=== PATIENT | male | born 1955 | race Caucasian/White ===

== ENCOUNTER → 2019-05-06 | Outpatient (CLI) | payer MEDICARE ==
[~2019-05-06] MED LIST: FISH OIL 1,2001 EAC1 PO; IOPAMIDOL 370 MG/ML 200 ML INFUS..BTL INJ ONE; METOPROLOL SUCC25 MG PO; MULTIVITAMINS1 EAC7 PO; SODIUM CHLORIDE 0.9% 50ML 50 ML ONE; STOOL SOFTENER50 MG PO; VITAMIN C500 M1 PO; VITAMIN E200 UNI1 PO; ZOLPIDEM TARTRA10 MG PO
--- NOTE | 2019-05-06 17:03 | Diagnostic Imaging Report ---
EXAM: CT Abdomen and Pelvis WITH intravenous contrast INDICATION: Abdominal pain, vomiting COMPARISON: None. TECHNIQUE: Abdomen and pelvis were scanned utilizing a multidetector helical scanner from the lung base to the pubic symphysis after administration of IV contrast. Coronal and sagittal reformations were obtained. Routine protocol was performed. Scan was performed when during portal venous phase. IV CONTRAST: 100mL of Isovue 370 ORAL CONTRAST: Water COMPLICATIONS: None RADIATION DOSE: Total DLP: 419.6 mGy*cm Dose modulation, iterative reconstruction, and/or weight based adjustment of the mA/kV was utilized to reduce the radiation dose to as low as reasonably achievable. FINDINGS: LOWER THORAX: Normal. HEPATOBILIARY: No focal hepatic lesions. No biliary ductal dilatation. The gallbladder appears unremarkable. SPLEEN: No splenomegaly. Punctate calcified granuloma in the spleen. PANCREAS: There is a cystic mass of the pancreatic head measuring approximately 3.4 x 2.3 cm (series 2 image 27 there is no significant associated ductal dilatation. The mass appears to contain internal septations and multiple loculations. Additional hypodense lesions in the pancreatic body measure up to 1.3 cm (series 2 image 24). ADRENALS: No adrenal nodules. KIDNEYS/URETERS: No hydronephrosis, stones, or solid mass lesions. PELVIC ORGANS/BLADDER: Coarse calcifications in the nonenlarged prostate. Bladder appears unremarkable. PERITONEUM / RETROPERITONEUM: No free air or fluid. LYMPH NODES: No lymphadenopathy. VESSELS: Atherosclerotic calcifications of the abdominal aorta and major branches. GI TRACT: No abnormal bowel wall thickening or bowel distention. BONES AND SOFT TISSUES: No acute osseous injury. Mild degenerative changes of the visualized spine. No suspicious lytic or blastic lesions. IMPRESSION: Cystic, likely multiloculated mass of the pancreatic head measuring 3.4 x 2.3 cm and smaller pancreatic body cystic lesion. The differential includes intraductal papillary mucinous neoplasm as well as serous cystadenoma. Further evaluation with dynamic contrast enhanced MR imaging is recommended for further characterization. Signed by: Reese Ho MD on 05/06/2019 5:00 PM
== END ==
LOC: CT 14:30
PROVIDERS: ATTEND Internal Medicine Gastroenterology
DX: R10.10 Upper abdominal pain, unspecified (principal)
CPT/HCPCS: 74177; Q9967

== ENCOUNTER → 2019-05-08 | Day surgery (SDC) | payer MEDICARE ==
[2019-05-01 18:01] LABS: BASOPHILS # (AUTO) 0.1 (0.0-0.1); BASOPHILS % 0.6 % (0.0-1.0); EOSINOPHILS # (AUTO) 0.2 (0.0-0.4); EOSINOPHILS % 2.6 % (0.0-6.0); HEMATOCRIT 43.2 % (38.2-49.6); HEMOGLOBIN 14.5 g/dL (14.0-18.0); LYMPHOCYTES # (AUTO) 3.2 (1.0-3.2); LYMPHOCYTES % 34.7 % (18.0-39.1); MEAN CORPUSCULAR HEMOGLOBIN 32.6 pg (28-32); MEAN CORPUSCULAR HGB CONC 33.6 g/dL (31-35); MEAN CORPUSCULAR VOLUME 97.1 fL (81-99); MONOCYTES # (AUTO) 0.8 (0.2-0.8); MONOCYTES % 8.4 % (4.4-11.3); NEUTROPHILS # (AUTO) 4.9 (2.1-6.9); NEUTROPHILS % 53.4 % (38.7-80.0); PLATELET COUNT 175 x10e3/uL (140-360); RED BLOOD COUNT 4.45 x10e6/uL (4.3-5.7); RED CELL DISTRIBUTION WIDTH 14.8 % (11.7-14.4)
[2019-05-01 18:18] LABS: INR 0.91; PARTIAL THROMBOPLASTIN TIME 25.8 seconds (23.8-35.5); PROTHROMBIN TIME 12.7 seconds (11.9-14.5)
[2019-05-01 18:25] LABS: ALANINE AMINOTRANSFERASE 36 IU/L (0-55); ALBUMIN 3.6 g/dL (3.5-5.0); ALBUMIN/GLOBULIN RATIO 1.3 (0.8-2.0); ALKALINE PHOSPHATASE 72 IU/L (40-150); ANION GAP 13.5 mmol/L (8-16); BLOOD UREA NITROGEN 11 mg/dL (7-26); BUN/CREATININE RATIO 18 (6-25); CALCIUM 9.6 mg/dL (8.4-10.2); CARBON DIOXIDE 25 mmol/L (22-29); CHLORIDE 105 mmol/L (98-107); CREATININE, SERUM 0.62 mg/dL (0.72-1.25); EST GLOMERULAR FILTRATION RATE > 60 ML/MIN (60-); GLUCOSE 89 mg/dL (74-118); POTASSIUM 4.5 mmol/L (3.5-5.1); SODIUM 139 mmol/L (136-145)
[~2019-05-08] MED LIST changes: +FENTANYL CITRATE/PF 100MCG/2 ML INJ ONE; +HYOSCYAMINE 0.125 MG TAB ONE; -IOPAMIDOL 370 MG/ML 200 ML INFUS..BTL INJ ONE; +MIDAZOLAM HCL 2 MG/2 ML VIAL ONE; +PROPOFOL IV EMULSION 10 MG/ML 50 ML VIAL ONE; -SODIUM CHLORIDE 0.9% 50ML 50 ML ONE
--- OUTSIDE RECORDS SUMMARY | 2019-05-08 07:26 | XMS REPORT | Summary of Care ---
Author Author [facility] Organization [facility] Address Unknown Phone Unavailable Encounter HQ Encntr_alias(FIN) [id number] Date(s): 10/06/17 - 10/06/17 [facility] [id number] [place] [address]- Discharge Disposition: Home or Self Care Attending Physician: Lor Davis MD Referring Physician: Lor Davis MD Vital Signs No data available for this section Problem List No data available for this section Allergies, Adverse Reactions, Alerts No data available for this section Medications No data available for this section Results No data available for this section Immunizations No data available for this section Procedures No data available for this section Social History No data available for this section Assessment and Plan No data available for this section
--- OUTSIDE RECORDS SUMMARY | 2019-05-08 07:26 | XMS REPORT | Continuity of Care Document ---
Author Author [facility] Organization [facility] Address Unknown Phone Unavailable Care Team Providers Care [employer] Name Role Phone [facility] Unavailable Unavailable Problems Problem Status Onset Date Classification Date Reported Comments Source DX: G89.4=CHRONIC PAIN SYNDROME NO ST Active 09/24/2017 [facility] M54.5 - LOW BACK PAIN Active 08/21/2017 [facility] [place] Medications No Data Provided for This Section Allergies, Adverse Reactions, Alerts No Known Medication Allergies Immunizations No Data Provided for This Section Results No Data Provided for This Section Pathology Reports No Data Provided for This Section Diagnostic Reports Report Value Date Source Spine lumbar wo contrast MRI Clinical Indication: Lumbar Raiculopathy - Low back pain since 2015. No H/O of accident or trauma. Comparison: None. TECHNIQUE: Multiplanar T1, T2, STIR weighted noncontrast MRI of the lumbar spine is performed without IV contrast. FINDINGS: There is lumbar lordosis. The vertebral body heights and alignment are maintained. The bone marrow signal is within normal limits. The conus terminates at L1-L2. The distal cord is normal in size and signal characteristics. At L1-L2 there is no disc herniation, spinal canal stenosis or foraminal narrowing. There is bilateral facet joint arthropathy. At L2-L3 there is a mild disc bulge with bilateral facet joint arthropathy causing mild spinal canal stenosis and mild bilateral neural foraminal narrowing. At L3-L4, there is a diffuse disc bulge with bilateral facet joint arthropathy and mild ligamentum flavum hypertrophy causing mild spinal canal stenosis and mild bilateral neural foraminal narrowing, right greater than the left. At L4-L5 there is a diffuse disc bulge with bilateral facet joint arthropathy and ligamentum flavum hypertrophy causing moderate spinal canal stenosis and mild bilateral neural foraminal narrowing. At L5-S1 there is a diffuse disc bulge with right central and paracentral disc extrusion extending inferiorly for approximately may be 1.0 cm. It is causing narrowing of the right lateral recess and moderate spinal canal stenosis. There is no significant neural foraminal narrowing. IMPRESSION: No fracture or subluxation. Degenerative changes. At L5-S1 there is diffuse disc bulge with a right central and paracentral disc extrusion extending inferiorly for approximately 1.0 cm. It is causing narrowing of the right lateral recess and moderate spinal canal stenosis. At L4-L5 there is moderate spinal canal stenosis and mild bilateral neural foraminal narrowing. At L2-L3 and L3-L4 there is mild spinal canal stenosis and mild bilateral neural foraminal narrowing. SL: [id number] 10/06/2017 [facility] Spine lumbar 2 or 3 views DX REASON FOR EXAM: M54.5. Low back pain. COMPARISON: None. FINDINGS: Weightbearing AP and lateral views of the lumbar spine. 3 images are submitted. There are 5 lumbar vertebral bodies. The lumbar vertebral bodies are normally aligned. There is spondylosis of the lumbar spine with multilevel small anterior and lateral marginal osteophytes. Multilevel mild to moderate facet arthropathy is suspected more pronounced inferiorly. Mild posterior disc space narrowing at L1- L2 and L2-L3. Mild to moderate posterior disc space narrowing at L3-L4 and L4- L5. Moderate diffuse disc space narrowing at L5-S1. No compression deformity. There is no demonstrable abnormality of the sacroiliac joints. Mild aortoiliac calcifications. Calcified pelvic phleboliths. IMPRESSION: Degenerative changes of the lumbar spine as described above. SL: 16 08/28/2017 [facility] [place] Consultation Notes No Data Provided for This Section Discharge Summaries No Data Provided for This Section History and Physicals No Data Provided for This Section Vital Signs No Data Provided for This Section Encounters Location Location Details Encounter Type Encounter Number Reason For Visit Attending Provider ADM Date DC Date Status Source [facility] [place] [facility] [id number] Rajesh Carl 08/28[facility]2017 [facility] [id number] Lor Davis 10/06/2017 10/07/2017 [facility] Procedures No Data Provided for This Section Assessment and Plan No Data Provided for This Section Plan of Care No Data Provided for This Section Social History Social History Date Source No data available for this section 10/07/2017 [facility] No data available for this section 08/29/2017 [facility] Family History No Data Provided for This Section Advance Directives No Data Provided for This Section Functional Status No Data Provided for This Section
--- OUTSIDE RECORDS SUMMARY | 2019-05-08 07:26 | XMS REPORT ---
Author Author [facility] Address Unknown Phone Unavailable Care Team Providers Care Mainframe Analyst Name Role Phone LISA WORLEY Unavailable Unavailable Payers Payer Name Policy Type Policy Number Effective Date Expiration Date Problems This patient has no known problems. Allergies, Adverse Reactions, Alerts Allergy Name Allergy Type Status Severity Reaction(s) Onset Date Inactive Date Treating Clinician Comments No Known Allergies DA Active U 2018-11-05 00:00:00 No Known Contrast Allergies DA Active U 2005-08-26 00:00:00 No Known Drug Allergies DA Active U 2005-08-26 00:00:00 No Known Food Allergies DA Active U 2005-08-26 00:00:00 No Known Other Allergies DA Active U 2005-08-26 00:00:00 Medications This patient has no known medications. Results Test Description Test Time Test Comments Text Results Atomic Results Result Comments CT ABDOMEN/PELVIS W 2019-05-06 16:46:00 [facility] [address] [place] [address] Patient Name: ADAM SCHAFFER MR #: [id number] : 1955 Age/Sex: 63/M Req #: [id number] Adm Physician: Ordered by: LISA WORLEY MD Report #: [id number] Location: CT Room/Bed: Procedure: [id number] CT/CT ABDOMEN/PELVIS W Exam Date: 05/06/19 Exam Time: 1527 REPORT STATUS: Signed EXAM: CT Abdomen and Pelvis WITH intravenous contrast INDICATION: Abdominal pain, vomiting COMPARISON: None. TECHNIQUE: Abdomen and pelvis were scanned utilizing a multidetector helical scanner from the lung base to the pubic symphysis after administration of IV contrast. Coronal and sagittal reformations were obtained. Routine protocol was performed. Scan was performed when during portal venous phase. IV CONTRAST: 100mL of Isovue 370 ORAL CONTRAST: Water COMPLICATIONS: None RADIATION DOSE: Total DLP: 419.6 mGy*cm Dose modulation, iterative reconstruction, and/or weight based adjustment of the mA/kV was utilized to reduce the radiation dose to as low as reasonably achievable. FINDINGS: LOWER THORAX: Normal. HEPATOBILIARY: No focal hepatic lesions. No biliary ductal dilatation. The gallbladder appears unremarkable. SPLEEN: No splenomegaly. Punctate calcified granuloma in the spleen. PANCREAS: There is a cystic mass of the pancreatic head measuring a pproximately 3.4 x 2.3 cm (series 2 image 27 there is no significant associated ductal dilatation. The mass appears to contain internal septations and multiple loculations. Additional hypodense lesions in the pancreatic body measure up to 1.3 cm (series 2 image 24). ADRENALS: No adrenal nodules. KIDNEYS/URETERS: No hydronephrosis, stones, or solid mass lesions. PELVIC ORGANS/BLADDER: Coarse calcifications in the nonenlarged prostate. Bladder appears unremarkable. PERITONEUM / RETROPERITONEUM: No free air or fluid. LYMPH NODES: No lymphadenopathy. VESSELS: Atherosclerotic calcifications of the abdominal aorta and major branches. GI TRACT: No abnormal bowel wall thickening or bowel distention. BONES AND SOFT TISSUES: No acute osseous injury. Mild degenerative changes of the visualized spine. No suspicious lytic or blastic lesions. IMPRESSION: Cystic, likely multiloculated mass of the pancreatic head measuring 3.4 x 2.3 cm and smaller pancreatic body cystic lesion. The differential includes intraductal papillary mucinous neoplasm as well as serous cystadenoma. Further evaluation with dynamic contrast enhanced MR imaging is recommended for further characterization. Signed by: Humera Velez MD on 05/06/2019 5:00 PM Dictated By: HUMERA VELEZ MD 99 Transcribed By: MAXX on 05/06/191699 COPY TO: LISA WORLEY MD CBC W/AUTO DIFF 2018-11-06 07:51:00 WHITE BLOOD CELL (test code=WBC) 10.00 x10 3/uL 4.5-11.0 RED BLOOD CELL (test code=RBC) 4.35 x10 6/uL 4.00-5.60 HEMOGLOBIN (test code=HGB) 13.9 g/dL 12.5-16.9 HEMATOCRIT (test code=HCT) 44.0 % 37.5-50.7 MEAN CELL VOLUME (test code=MCV) 101.1 fL 81.0-99.0 MEAN CELL HGB (test code=MCH) 32.0 pg 27.0-33.0 MEAN CELL HGB CONCETRATION (test code=MCHC) 31.6 g/dL 33.0-37.0 RED CELL DISTRIBUTION WIDTH CV (test code=RDW) 13.9 % 11.5-14.5 RED CELL DISTRIBUTION WIDTH SD (test code=RDW-SD) 52.3 fL 37.0-54.0 PLATELET COUNT (test code=PLT) 173 x10 3/uL 150-400 MEAN PLATELET VOLUME (test code=MPV) 9.6 fL 7.0-9.0 NEUTROPHIL % (test code=NT%) 49.6 % 56.0-77.0 IMMATURE GRANULOCYTE % (test code=IG%) 0.2 % 0.0-2.0 LYMPHOCYTE % (test code=LY%) 39.8 % 14.0-32.0 MONOCYTE % (test code=MO%) 7.9 % 4.8-9.0 EOSINOPHIL % (test code=EO%) 1.9 % 0.3-3.7 BASOPHIL % (test code=BA%) 0.6 % 0.0-2.0 NUCLEATED RBC % (test code=NRBC%) 0.0 % 0-0 NEUTROPHIL # (test code=NT#) 4.96 x10 3/uL 2.0-7.6 IMMATURE GRANULOCYTE # (test code=IG#) 0.02 x10 3/uL 0.00-0.03 LYMPHOCYTE # (test code=LY#) 3.98 x10 3/uL 1.0-3.8 MONOCYTE # (test code=MO#) 0.79 x10 3/uL 0.1-0.8 EOSINOPHIL # (test code=EO#) 0.19 x10 3/uL 0.0-0.2 BASOPHIL # (test code=BA#) 0.06 x10 3/uL 0.0-0.2 NUCLEATED RBC # (test code=NRBC#) 0.00 x10 3/uL 0.0-0.1 MANUAL DIFF REQUIRED (test code=MDIFF) NO URINALYSIS [id number] 12:32:00* Test Item Value Reference Range Comments UA COLOR (test code=COLU) STRAW YEL/STRAW UA APPEARANCE (test code=APPU) CLEAR CLEAR UA GLUCOSE DIPSTICK (test code=DGLUU) NEGATIVE NEGATIVE UA BILIRUBIN DIPSTICK (test code=BILU) NEGATIVE NEGATIVE UA KETONE DIPSTICK (test code=KETU) NEGATIVE NEGATIVE UA SPECIFIC GRAVITY (test code=SGU) 1.005 1.005-1.030 UA BLOOD DIPSTICK (test code=JORDON) NEGATIVE NEGATIVE UA PH DIPSTICK (test code=SOCORRO) 7.0 5.0-7.0 UA PROTEIN DIPSTICK (test code=PROU) NEGATIVE NEGATIVE UA UROBILINIOGEN DIPSTICK (test code=URO) 0.2 mg/dL 0.2-1.0 UA NITRITE DIPSTICK (test code=MISHA) NEGATIVE NEGATIVE UA LEUKOCYTE ESTERASE DIPSTICK (test code=LEUU) NEGATIVE NEGATIVE UA WBC (test code=WBCU) 0-3 WBC/HPF 0-3 UA RBC (test code=RBCU) 0-3 RBC/HPF 0-3 UA BACTERIA (test code=BACU) NONE SEEN /HPF NONE SEEN UA SQUAMOUS CELLS (test code=SQU) NONE SEEN /HPF NONE SEEN UA MUCUS (test code=MUCU) TRACE /LPF NONE SEEN DRUGS OF ABUSE SCREEN [id number] 09:31:00* Test Item Value Reference Range Comments URN COCAINE (test code=COCAURN) NEGATIVE NEGATIVE URN CANNABINOIDS (test code=CANNABURN) POSITIVE NEGATIVE URN AMPHETAMINE (test code=AMPHETURN) NEGATIVE NEGATIVE URN BARBITURATE (test code=BARBITURN) NEGATIVE NEGATIVE URN BENZODIAZEPINE (test code=BENZOURN) NEGATIVE NEGATIVE Cut-off value:200 ng/mL URN OPIATES (test code=OPIATURN) NEGATIVE NEGATIVE Cut-off value:2000 ng/mL URN PHENCYCLIDINE (PCP) (test code=PHENCURN) NEGATIVE NEGATIVE Cutoffs:Barbiturates 200 ng/mLBenzodiazepines 200 ng/mLTHC Cannabinoids 50 ng/mLOpiates(Morphine) 2000 ng/mLAmphetamine 1000 ng/mLCocaine 300 ng/mLPCP phencyclidine 25 ng/mL Unconfirmed screening results shouldnot be used for non-medical purposes. DRUGS OF ABUSE SCREEN [id number] 09:22:00* Test Item Value Reference Range Comments URN COCAINE (test code=COCAURN) NEGATIVE NEGATIVE URN CANNABINOIDS (test code=CANNABURN) NEGATIVE URN AMPHETAMINE (test code=AMPHETURN) NEGATIVE NEGATIVE URN BARBITURATE (test code=BARBITURN) NEGATIVE NEGATIVE URN BENZODIAZEPINE (test code=BENZOURN) NEGATIVE NEGATIVE Cut-off value:200 ng/mL URN OPIATES (test code=OPIATURN) NEGATIVE NEGATIVE Cut-off value:2000 ng/mL URN PHENCYCLIDINE (PCP) (test code=PHENCURN) NEGATIVE NEGATIVE Cutoffs:Barbiturates 200 ng/mLBenzodiazepines 200 ng/mLTHC Cannabinoids 50 ng/mLOpiates(Morphine) 2000 ng/mLAmphetamine 1000 ng/mLCocaine 300 ng/mLPCP phencyclidine 25 ng/mL Unconfirmed screening results shouldnot be used for non-medical purposes. [id number] 08:15:00* Test Item Value Reference Range Comments ALCOHOL (test code=ALC) < 0.003 G/dL <0.003 Ethyl Alcohol Interpretation: 0.100 gm/dL - Legally Intoxicated 0.300-0.400 gm/dL - Severely Intoxicated >0.400 gm/dL - Potentially LethalResults are for Medical purposes only, and not for Legal orEmployment evaluation purposes. CBC W/AUTO [id number] 08:15:00* Test Item Value Reference Range Comments WHITE BLOOD CELL (test code=WBC) 12.57 x10 3/uL 4.5-11.0 RED BLOOD CELL (test code=RBC) 4.40 x10 6/uL 4.00-5.60 HEMOGLOBIN (test code=HGB) 14.3 g/dL 12.5-16.9 HEMATOCRIT (test code=HCT) 45.6 % 37.5-50.7 MEAN CELL VOLUME (test code=MCV) 103.6 fL 81.0-99.0 MEAN CELL HGB (test code=MCH) 32.5 pg 27.0-33.0 MEAN CELL HGB CONCETRATION (test code=MCHC) 31.4 g/dL 33.0-37.0 RED CELL DISTRIBUTION WIDTH CV (test code=RDW) 13.9 % 11.5-14.5 RED CELL DISTRIBUTION WIDTH SD (test code=RDW-SD) 53.4 fL 37.0-54.0 PLATELET COUNT (test code=PLT) 168 x10 3/uL 150-400 MEAN PLATELET VOLUME (test code=MPV) 9.6 fL 7.0-9.0 NEUTROPHIL % (test code=NT%) 62.9 % 56.0-77.0 IMMATURE GRANULOCYTE % (test code=IG%) 0.5 % 0.0-2.0 LYMPHOCYTE % (test code=LY%) 27.4 % 14.0-32.0 MONOCYTE % (test code=MO%) 7.2 % 4.8-9.0 EOSINOPHIL % (test code=EO%) 1.4 % 0.3-3.7 BASOPHIL % (test code=BA%) 0.6 % 0.0-2.0 NUCLEATED RBC % (test code=NRBC%) 0.0 % 0-0 NEUTROPHIL # (test code=NT#) 7.91 x10 3/uL 2.0-7.6 IMMATURE GRANULOCYTE # (test code=IG#) 0.06 x10 3/uL 0.00-0.03 LYMPHOCYTE # (test code=LY#) 3.45 x10 3/uL 1.0-3.8 MONOCYTE # (test code=MO#) 0.90 x10 3/uL 0.1-0.8 EOSINOPHIL # (test code=EO#) 0.18 x10 3/uL 0.0-0.2 BASOPHIL # (test code=BA#) 0.07 x10 3/uL 0.0-0.2 NUCLEATED RBC # (test code=NRBC#) 0.00 x10 3/uL 0.0-0.1 MANUAL DIFF REQUIRED (test code=MDIFF) NO PROTHROMBIN [id number] 08:12:00* Test Item Value Reference Range Comments PROTHROMBIN TIME PATIENT (test code=PTP) 13.8 SECONDS 9.3-12.9 INTERNATIONAL NORMAL RATIO (test code=INR) 1.2 0.8-1.2 TARGET INR BY INDICATION Indication INR1. Prophylaxis of venous thrombosis 2.0 - 3.0 (orthopedic surgery), Prophylaxis of venous thrombosis (other than high-risk surgery), Treatment of Deep Vein Thrombosis/Pulmonary Embolism, Prevention of systemic embolism - Tissue heart valves, Acute Myocardial Infarction (to prevent systemic embolism), Valvular heart disease, Atrial Fibrillation, Bileaflet mechanical valve in aortic position.2. Mechanical prosthetic valves (high risk), 2.5 - 3.5 Presence of Lupus Anticoagulant or Antiphospholipid Antibodies, Prevention of systemic embolism - Acute Myocardial Infarction (to prevent recurrent infarct). THROMBOPLASTIN TIME [id number] 08:12:00* Test Item Value Reference Range Comments THROMBOPLASTIN TIME PARTIAL (test code=PTT) 30.7 Seconds 25.0-39.5 Therapeutic Range: 61.8-83.8 Sec Effective 11/12/2013 - CT MAXIFAC W/O [id number] 07:27:00 Name: ADAM SCHAFFER [facility] : 1955 Age/S: 63 / M [address] [place] [address] Unit #: [id number] Loc: [place] [address] Phys: Sarwat Jo MD Acct: [id number] Dis Date: Status: REG ER PHONE #: [phone] Exam Date: 11/05/2018 0706 FAX #: [phone] Reason: maxilla EXAMS: CPT CODE: [id number] CT MAXIFAC W/O CONTRAST 27782 CT face without contrast 11/05/2018 HISTORY: Face injury PROCEDURE: 2 mm axial images through the face were obtained with coronal and sagittal reconstructions. DLP: 382.6 No prior exams are available for comparison FINDINGS: The visualized frontal sinuses are clear. There is mild bilateral ethmoid and right sphenoid mucosal thickening. Small bilateral maxillary mucous retention cysts are noted. There is no air-fluid level in the visualized paranasal sinuses. There is no cortical irregularity or lucency to suggest an acute fracture. No aggressive lesion is present. There is a laceration involving the right maxillary lip with soft tissue swelling. Right facial subcutaneous fat stranding is suggestive of edema. There is no well-formed hematoma identified. There is no acute fracture identified. IMPRESSION: No acute facial fracture. SL: [id number] at 0727 Reported and signed by: Kvng Candelaria M.D. CC: Sarwat Jo MD Technologist:RT Elio(R)(CT) CTDI: DLP: Trnscb Date/Time: 11/05/2018 (726) [id number] Orig Print D/T: S: 11/05/2018 (729) CTDI: DLP: PAGE 1 Signed Report BASIC METABOLIC [id number] 07:24:00* Test Item Value Reference Range Comments SODIUM (test code=NA) 140 mEq/L 134-147 POTASSIUM (test code=K) 4.4 mEq/L 3.4-5.0 CHLORIDE (test code=CL) 107 mEq/L 100-108 CARBON DIOXIDE (test code=CO2) 27 mEq/L 21-33 ANION GAP (test code=GAP) 10 0-20 GLUCOSE (test code=GLU) 111 mg/dL 70-110 BLOOD UREA NITROGEN (test code=BUN) 11 mg/dL 7-18 GLOMERULAR FILTRATION RATE (test code=GFR) 113.2 80-90 Units of measure=ml/min/1.73 m2 CREATININE (test code=CREAT) 0.7 mg/dL 0.6-1.3 CALCIUM (test code=CA) 8.3 mg/dL 8.0-10.5 HEPATIC FUNCTION [id number] 07:24:00* Test Item Value Reference Range Comments TOTAL PROTEIN (test code=PROT) 5.8 g/dL 6.4-8.2 ALBUMIN (test code=ALB) 2.90 g/dL 3.4-5.0 BILIRUBIN TOTAL (test code=BILT) 0.40 mg/dL 0.0-1.0 BILIRUBIN DIRECT (test code=BILD) 0.20 MG/DL 0.0-0.30 BILIRUBIN INDIRECT (test code=BILIND) 0.20 MG/DL SGOT/AST (test code=AST) 44 IUnit/L 15-37 SGPT/ALT (test code=ALT) 43 IUnit/L 15-65 ALKALINE PHOSPHATASE TOTAL (test code=ALKP) 61 IUnit/L 20-125 [id number] 07:24:00* Test Item Value Reference Range Comments TROPONIN-I (test code=TROPI) < 0.015 ng/mL 0.000-0.045 Negative: <=0.045 Positive: >=0.046 Correlation with serial results, other cardiac markers andclinical findings is necessary to determine the clinicalsignificance of this result. Results using different methodologies should not be comparedto one another as quantitative results may vary by method. - CT HEAD/BRAIN W/O [id number] 07:22:00 Name: KARIMEADAM JENNIFER [facility] : 1955 Age/S: 63 / M [address] [place] [address] Blvd Unit #: [id number] Loc: [place] [address] Phys: Sarwat Jo MD Acct: [id number] Dis Date: Status: REG ER PHONE #: [phone] Exam Date: 11/05/2018 07 FAX #: [phone] Reason: HEADACHE EXAMS: CPT CODE: [id number] CT HEAD/BRAIN W/O CONT 01397 CT HEAD WITHOUT CONTRAST: HISTORY: Headache. Trauma. PROCEDURE: Multiple axial images from the skull base to the skull vertex were obtained without contrast. Coronal and sagittal reconstructed images were performed. DLP: 419.7 mGy-cm COMPARISON: None FINDINGS: PARENCHYMA: No acute hemorrhage, midline shift, extra-axial fluid collection, mass, or hydrocephalus is present. Cano-white differentiation appears normal. No sulcal effacement to suggest acute infarct is present. SKULL BASE AND SINUSES: The visualized mastoid air cells are clear. There is no air-fluid level in the visualized paranasal sinuses. Calvarium is intact. IMPRESSION: No acute intracranial abnormality. SL: [id number] at 0722 Reported and signed by: Kvng Candelaria M.D. CC: Sarwat Jo MD Technologist:Treasure Kurtz RT(R)(CT) CTDI: DLP: Trnscb Date/Time: 11/05/2018 (721) [email or web address] Orig Print D/T: S: 11/05/2018 (724) CTDI: DLP: PAGE 1 Signed Report TROPONIN-I [id number] 07:00:00* Test Item Value Reference Range Comments TROPONIN-I RAPID (test code=TROPIRAP) 0.01 ng/mL 0.00-0.08 Performed by certified blanchard grinder operator [facility]A Global Task Force with joint leadership from the EuropeanSociety of Cardiology (ESC), the [place] College [employer] Foundation (ACCF), the [place] Heart Association(AHA) and the World Heart Federation (WHF) refined past criteria of myocardial infarction (CA) with a universal definition of myocardial infarction that supports the use of cTnI as a preferred biomarker for myocardial injury. The universal definition of CA, according to this taskforce, is defined as a typical rise and gradual fall ofcardiac biomarkers (preferably troponin) with at least onevalue above the 99th percentile of the upper reference limit (URL) together with evidence of myocardial ischemia with at least one of the following:* ischemic symptoms,* pathological Q waves on electrocardiogram (ECG),* ischemic ECG changes,* or imaging evidence of new loss of viable myocardium or new regional wall motion abnormality. An elevated troponin value alone is not sufficient todiagnose a myocardial infarction. Rather, the patient sclinical presentation (history, physical exam) and ECGshould be used in conjunction with troponin in thediagnostic evaluation of suspected myocardial infarction. Aserial sampling protocol is recommended to facilitate the identification of temporal changes in troponin levels characteristic of CA. - XR CHEST 1 [id number] 06:58:00 FAX: Sarwat Jo MD [phone] [place]: [facility] [address]: PRE Name: ADAM HODGE [facility] : [birth year] Age/S: 63/M [address] [place] [address] Blvd Unit #: [id number] Loc: [place] [address] Phys: Sarwat Jo MD Acct: [id number] Dis Date: Status: PRE ER PHONE #: [phone] Exam Date: 11/05/2018 0659 FAX #: [phone] Reason: CHEST PAIN EXAMS: CPT CODE: [id number] XR CHEST 1 V 30757 Chest single view 11/05/2018 HISTORY: Chest pain No prior exams are available for alma rison FINDINGS: The lungs are hypoinflated. No consolidation or p leural effusion is present. Heart size is normal. Aorta is within normal limits. No vascular congestion or interstitial edema is present. IMPRESSION: No acute cardiopulmonary process. SL: [id number] at 0658 Reported and signed by: Kvng Candelaria M.D. CC: Sarwat Jo MD Technologist: RT Garnica (R) Trnscrd Date/Time/By: (0658) : By: [email or web address] Orig Print D/T: S: 11/05/2018 (0701) PAGE 1 Signed Report
[2019-05-08 10:45] VITALS: BP 132/92
--- NOTE | 2019-05-08 11:22 | Operative Report ---
DATE OF PROCEDURE: 05/08/2019 SURGEON: Jerrod Lopez MD PROCEDURES: Esophagogastroduodenoscopy with biopsies and colonoscopy with polypectomy. INDICATIONS FOR EGD: Upper abdominal pain, nausea, vomiting, dysphagia to solids. INDICATIONS FOR COLONOSCOPY: Colorectal cancer screening. MEDICATIONS: The patient was done under MAC, please see anesthesiologist's note. PROCEDURE IN DETAIL: With the patient in left lateral decubitus position, flexible fiberoptic Olympus gastroscope was introduced into the esophagus under direct visualization without any difficulty. Grade 1 to 2 esophageal varices were noted without active bleeding or stigmata of recent hemorrhage. A mild stricture was noted at the GE junction that was dilated to size 52-Malagasy Patel. The scope was then advanced with ease into the stomach traversing a small sliding hiatal hernia. Mucosa overlying the antrum and the body revealed some diffuse intense erythema and moderate edema and possibly some portal hypertensive gastropathy. Biopsies were obtained and sent to stain for H pylori. Pylorus was of normal contour and shape, it was intubated with ease and the scope was advanced all the way to the second portion of the duodenum. Biopsies were obtained from the second portion and duodenal bulb to rule out sprue. There was a minute nodule noted in the proximal second portion that was biopsied. An additional nodule was noted in the duodenal bulb that was biopsied. The scope was then withdrawn back into the stomach and retroflexed, mucosa overlying the fundus and cardia grossly appeared to be within normal limits. The scope was then straightened out, it was subsequently withdrawn. The patient tolerated the procedure well. IMPRESSION: 1. Esophageal varices, grade 1 to 2 without active bleeding or stigmata of recent hemorrhage. 2. Esophageal stricture, dilated to size 52-Malagasy Patel. 3. Small sliding hiatal hernia. 4. Gastritis? Portal hypertensive gastropathy. Biopsies obtained and sent to stain for Helicobacter pylori. 5. Nodule bulb, biopsied. 6. Nodule proximal second portion, biopsied. 7. Rule out sprue. PLAN: Follow up histology. Initiate Protonix 40 mg one p.o. q.a.m. a.c. PROCEDURE IN DETAIL: The patient was then turned around after adequate lubrication of the anal canal, flexible fiberoptic Olympus colonoscope was inserted into the rectum with ease and advanced all the way to the cecum. A minute polyp was snared in the cecum. The scope was then withdrawn slowly. An approximately 1.2 cm sessile polypoid mass was noted in the proximal ascending colon that was removed per snare electrocautery and site was hemoclipped x2. The rest of the ascending colon grossly appeared to be within normal limits. Two polyps were hot biopsied, one polyp was snared from the transverse colon and the polypectomy site was hemoclipped. One polyp was snared from the descending colon. The rest of the descending and the sigmoid grossly appeared to be within normal limits. Five polyps were snared from the rectum. The scope was then retroflexed into the distal rectum. Small internal hemorrhoids were noted, none of which was actively bleeding. The scope was then straightened out, it was subsequently withdrawn. The patient tolerated the procedure well. IMPRESSION: 1. Cecal polyp, snared. 2. Proximal ascending colon polyp approximately 1.2 cm in size, sessile, removed per snare electrocautery and polypectomy site hemoclipped x2. 3. Transverse colon polyps x3, two hot biopsied, one snared, polypectomy site hemoclipped. 4. Descending colon polyp, snared. 5. Rectal polyp x5, snared. 6. Internal hemorrhoids, none actively bleeding. PLAN: Followup histology. Initiate high-fiber, low-fat diet. Initiate high-fiber supplement. A total of 11 polyps were removed. The patient will need a followup colonoscopy in one year. Jerrod Lopez MD [facility] [place] /[id number] cc: Davion Gallagher MD
== END | disposition home or self-care (01) ==
LOC: OR 07:23
PROVIDERS: ATTEND Internal Medicine Gastroenterology
DX: Z12.11 Encounter for screening for malignant neoplasm of colon (principal); D12.0 Benign neoplasm of cecum; D12.2 Benign neoplasm of ascending colon; D12.3 Benign neoplasm of transverse colon; D12.8 Benign neoplasm of rectum; D17.5 Benign lipomatous neoplasm of intra-abdominal organs; K29.50 Unspecified chronic gastritis without bleeding; K22.2 Esophageal obstruction; K29.80 Duodenitis without bleeding; I85.00 Esophageal varices without bleeding; K44.9 Diaphragmatic hernia without obstruction or gangrene; K64.8 Other hemorrhoids; I48.91 Unspecified atrial fibrillation; B18.2 Chronic viral hepatitis C; G71.11 Myotonic muscular dystrophy; I10 Essential (primary) hypertension; G47.33 Obstructive sleep apnea (adult) (pediatric); Z01.810 Encounter for preprocedural cardiovascular examination; Z01.812 Encounter for preprocedural laboratory examination; Z87.891 Personal history of nicotine dependence
CPT/HCPCS: 36415; 43239; 43450; 45384; 45385; 80053; 85025; 85610; 85730; 88305; 88312; 88342; 93005; J2250; J2704; J3010; 45378

== ENCOUNTER → 2019-09-25 | Outpatient (CLI) | payer MEDICARE ==
[~2019-09-25] MED LIST changes: -FENTANYL CITRATE/PF 100MCG/2 ML INJ ONE; +GADOBENATE DIMEGLUMINE 1 ML IV ONE; -HYOSCYAMINE 0.125 MG TAB ONE; -MIDAZOLAM HCL 2 MG/2 ML VIAL ONE; -PROPOFOL IV EMULSION 10 MG/ML 50 ML VIAL ONE; +SODIUM CHLORIDE 0.9% 50ML 50 ML ONE
[2019-09-25 09:46] LABS: BLOOD UREA NITROGEN 18 mg/dL (7-26); BUN/CREATININE RATIO 26 (6-25); EST GLOMERULAR FILTRATION RATE > 60 ML/MIN (60-)
--- NOTE | 2019-09-25 11:54 | Diagnostic Imaging Report ---
MRI of the abdomen, with and without contrast, 09/25/2019. History: Cystic pancreatic mass. Comparison: CT abdomen 05/06/2019. Technique: Multiplanar, multisequence imaging of the abdomen was performed pre- and post-IV administration of gadolinium. Discussion: A 3.6 x 3.5 m x 3.3 cm multiloculated cystic lesion is present in the head of the pancreas without visible enhancement, scar, or calcification. Multiple additional smaller cystic lesions are present throughout the pancreatic body and tail adjacent to the pancreatic duct, measuring up to 1.2 cm. There is no biliary or pancreatic ductal dilatation. The liver, gallbladder, spleen, kidneys, and adrenal glands are normal in appearance. The visualized loops of bowel and osseous structures are normal. There is no evidence of adenopathy. The hepatic, portal, splenic, and mesenteric veins are patent. The portal vein is normal in size measuring 1.2 cm in diameter. There is no evidence of ascites. IMPRESSION: Multiloculated cystic pancreatic head lesion with additional smaller cystic pancreatic body and tail lesions. Findings may represent serous cystadenoma or IPMN. Consider endoscopic ultrasound guided aspiration of largest pancreatic head lesion. Signed by: Ward Martinez on 09/25/2019 11:50 AM
== END ==
LOC: MRI 08:50
PROVIDERS: ATTEND Internal Medicine
DX: K86.2 Cyst of pancreas (principal)
CPT/HCPCS: 36415; 74183; 82565; 84520; A9577

== ENCOUNTER → 2020-11-16 | Day surgery (SDC) | payer MEDICARE ==
[2020-11-11 13:38] LABS: BASOPHILS # (AUTO) 0.1 (0.0-0.1); BASOPHILS % 0.9 % (0.0-1.0); EOSINOPHILS # (AUTO) 0.2 (0.0-0.4); EOSINOPHILS % 1.6 % (0.0-6.0); HEMATOCRIT 44.9 % (38.2-49.6); HEMOGLOBIN 14.6 g/dL (14.0-18.0); LYMPHOCYTES # (AUTO) 3.3 (1.0-3.2); MEAN CORPUSCULAR HEMOGLOBIN 31.7 pg (28-32); MEAN CORPUSCULAR HGB CONC 32.5 g/dL (31-35); MEAN CORPUSCULAR VOLUME 97.6 fL (81-99); PLATELET COUNT 240 x10e3/uL (140-360); RED CELL DISTRIBUTION WIDTH 13.8 % (11.7-14.4)
[2020-11-11 13:58] LABS: ALANINE AMINOTRANSFERASE 35 IU/L (0-55); ALBUMIN 3.2 g/dL (3.5-5.0); ALKALINE PHOSPHATASE 82 IU/L (40-150); ANION GAP 14.9 mmol/L (8-16); BLOOD UREA NITROGEN 13 mg/dL (7-26); BUN/CREATININE RATIO 17 (6-25); CALCIUM 8.9 mg/dL (8.4-10.2); CARBON DIOXIDE 21 mmol/L (22-29); CHLORIDE 105 mmol/L (98-107); CREATININE, SERUM 0.76 mg/dL (0.72-1.25); EST GLOMERULAR FILTRATION RATE > 60 ML/MIN (60-); GLUCOSE 148 mg/dL (74-118); POTASSIUM 4.9 mmol/L (3.5-5.1); SODIUM 136 mmol/L (136-145)
[~2020-11-16] VITALS: Ht 182.9 cm; Wt 81.6 kg
[2020-11-16] VITALS (10 sets, daily range): BP systolic 99–110; BP diastolic 71–79
[~2020-11-16] MED LIST changes: +ALPRAZOLAM 0.5 MG TAB ONE; +ASPIRIN 325 MG TAB ONE; +ASPIRIN ENTERI325 MG PO; +ATIVAN1 MG PO; +BIVALRIUDIN 250 MG/VIAL VIAL IV ONE; +DIPHENHYDRAMINE HCL 25 MG CAP ONE; +FENTANYL CITRATE/PF 100MCG/2 ML INJ ONE; +FISH OIL 1,0001 EAC3 PO; -GADOBENATE DIMEGLUMINE 1 ML IV ONE; +HEPARIN SOD/SOD CHLORIDE 2,000 ML ONE; +IOPAMIDOL 370 MG/ML 200 ML INFUS..BTL INJ ONE; +LIDOCAINE HCL 2% LOCAL 20 ML VIAL ONE; +MIDAZOLAM HCL 2 MG/2 ML VIAL ONE; +PRASUGREL 10 MG TAB ONE; +SODIUM CHLORIDE 0.9% 1000ML 1,000 ML ONE; +VERAPAMIL HCL 2.5 MG/ML 2 ML VIAL ONE; +ZINC PO
== END | disposition home or self-care (01) ==
LOC: CATH LAB 12:22
PROVIDERS: ATTEND Internal Medicine Interventional Cardiology
DX: I25.119 Atherosclerotic heart disease of native coronary artery with unspecified angina pectoris (principal); R94.39 Abnormal result of other cardiovascular function study; I48.0 Paroxysmal atrial fibrillation; I10 Essential (primary) hypertension; Z01.812 Encounter for preprocedural laboratory examination; Z20.822 Contact with and (suspected) exposure to COVID-19; Z79.02 Long term (current) use of antithrombotics/antiplatelets; Z79.82 Long term (current) use of aspirin; Z95.818 Presence of other cardiac implants and grafts; Z86.19 Personal history of other infectious and parasitic diseases
CPT/HCPCS: 93454; C9600; 36415; 76937; 80053; 85025; 92928; 99152; 99153; C1874; C1887; J0583; J2001; J2250; J3010; J7030; Q9967; U0002

== ENCOUNTER 2020-11-24 20:45 | Observation (INO) | payer MEDICARE ==
[~2020-11-24] VITALS: Ht 182.9 cm; Wt 81.6 kg
[~2020-11-24 20:45] MED LIST changes: -ALPRAZOLAM 0.5 MG TAB ONE; -ASPIRIN 325 MG TAB ONE; -BIVALRIUDIN 250 MG/VIAL VIAL IV ONE; -DIPHENHYDRAMINE HCL 25 MG CAP ONE; -FENTANYL CITRATE/PF 100MCG/2 ML INJ ONE; -HEPARIN SOD/SOD CHLORIDE 2,000 ML ONE; -IOPAMIDOL 370 MG/ML 200 ML INFUS..BTL INJ ONE; -LIDOCAINE HCL 2% LOCAL 20 ML VIAL ONE; -MIDAZOLAM HCL 2 MG/2 ML VIAL ONE; -PRASUGREL 10 MG TAB ONE; -SODIUM CHLORIDE 0.9% 1000ML 1,000 ML ONE; -SODIUM CHLORIDE 0.9% 50ML 50 ML ONE; -VERAPAMIL HCL 2.5 MG/ML 2 ML VIAL ONE
[2020-11-24 21:27] LABS: BASOPHILS # (AUTO) 0.1 (0.0-0.1); BASOPHILS % 0.8 % (0.0-1.0); EOSINOPHILS # (AUTO) 0.2 (0.0-0.4); EOSINOPHILS % 2.2 % (0.0-6.0); HEMATOCRIT 41.9 % (38.2-49.6); HEMOGLOBIN 13.5 g/dL (14.0-18.0); LYMPHOCYTES # (AUTO) 5.1 (1.0-3.2); LYMPHOCYTES % 46.2 % (18.0-39.1); MEAN CORPUSCULAR HEMOGLOBIN 31.2 pg (28-32); MEAN CORPUSCULAR HGB CONC 32.2 g/dL (31-35); MEAN CORPUSCULAR VOLUME 96.8 fL (81-99); MONOCYTES % 9.2 % (4.4-11.3); NEUTROPHILS # (AUTO) 4.6 (2.1-6.9); NEUTROPHILS % 41.4 % (38.7-80.0); PLATELET COUNT 223 x10e3/uL (140-360); RED BLOOD COUNT 4.33 x10e6/uL (4.3-5.7); RED CELL DISTRIBUTION WIDTH 13.7 % (11.7-14.4)
[2020-11-24 21:34] LABS: INR 0.96; PARTIAL THROMBOPLASTIN TIME 17.3 seconds (23.8-35.5); PROTHROMBIN TIME 13.4 seconds (11.9-14.5)
[2020-11-24 21:45] LABS: ALANINE AMINOTRANSFERASE 37 IU/L (0-55); ALBUMIN 3.1 g/dL (3.5-5.0); ALBUMIN/GLOBULIN RATIO 1.1 (0.8-2.0); ALKALINE PHOSPHATASE 80 IU/L (40-150); ANION GAP 14.2 mmol/L (8-16); BLOOD UREA NITROGEN 14 mg/dL (7-26); BUN/CREATININE RATIO 20 (6-25); CALCIUM 8.8 mg/dL (8.4-10.2); CARBON DIOXIDE 21 mmol/L (22-29); CHLORIDE 106 mmol/L (98-107); CREATINE KINASE 44 IU/L (30-200); CREATININE, SERUM 0.71 mg/dL (0.72-1.25); EST GLOMERULAR FILTRATION RATE > 60 ML/MIN (60-); GLUCOSE 99 mg/dL (74-118); POTASSIUM 4.2 mmol/L (3.5-5.1); SODIUM 137 mmol/L (136-145)
[2020-11-24] MEDS: SODIUM CHLORIDE 0.9% 1000ML 1,000 ML IV SCH (22:00)
[2020-11-24] MEDS ORDERED: SODIUM CHLORIDE 0.9% 1000ML 1,000 ML IV ONE (23:15)
[2020-11-24] MEDS ORDERED: ONDANSETRON HCL INJ 2MG/ML 2ML 2 MG/ML VIAL IV PRN (23:15)
[2020-11-24 23:54] VITALS: BP 106/72
[2020-11-25 00:05] VITALS: BP 106/72
[2020-11-25] MEDS ORDERED: ATORVASTATIN CA20 MG PO (00:23)
[2020-11-25] MEDS ORDERED: CLOPIDOGREL75 MG PO (00:23)
[2020-11-25] MEDS ORDERED: METOCLOPRAMIDE H5 MG PO (00:23)
[2020-11-25] MEDS: SODIUM CHLORIDE 0.9% 1000ML 1,000 ML IV SCH (02:52)
[2020-11-25 04:00] VITALS: BP 113/82
[2020-11-25 05:59] LABS: CREATINE KINASE MB 4.3 ng/mL (0-5.0)
[2020-11-25 06:20] LABS: CHOL/HDL RATIO 4.3 (3.9-4.7)
[2020-11-25 08:00] VITALS: BP 116/87
[2020-11-25 08:54] VITALS: BP 113/82
[2020-11-25 09:38] LABS: BASOPHILS # (AUTO) 0.1 (0.0-0.1); BASOPHILS % 0.7 % (0.0-1.0); EOSINOPHILS # (AUTO) 0.2 (0.0-0.4); EOSINOPHILS % 2.4 % (0.0-6.0); HEMATOCRIT 40.4 % (38.2-49.6); HEMOGLOBIN 13.1 g/dL (14.0-18.0); LYMPHOCYTES # (AUTO) 4.9 (1.0-3.2); LYMPHOCYTES % 50.4 % (18.0-39.1); MEAN CORPUSCULAR HEMOGLOBIN 30.9 pg (28-32); MEAN CORPUSCULAR HGB CONC 32.4 g/dL (31-35); MEAN CORPUSCULAR VOLUME 95.3 fL (81-99); MONOCYTES # (AUTO) 0.8 (0.2-0.8); NEUTROPHILS # (AUTO) 3.7 (2.1-6.9); NEUTROPHILS % 38.1 % (38.7-80.0); PLATELET COUNT 215 x10e3/uL (140-360); RED BLOOD COUNT 4.24 x10e6/uL (4.3-5.7); RED CELL DISTRIBUTION WIDTH 13.8 % (11.7-14.4)
[2020-11-25 09:53] LABS: ANION GAP 12.2 mmol/L (8-16); BLOOD UREA NITROGEN 10 mg/dL (7-26); BUN/CREATININE RATIO 16 (6-25); CALCIUM 8.4 mg/dL (8.4-10.2); CARBON DIOXIDE 23 mmol/L (22-29); CHLORIDE 107 mmol/L (98-107); CREATININE, SERUM 0.64 mg/dL (0.72-1.25); EST GLOMERULAR FILTRATION RATE > 60 ML/MIN (60-); GLUCOSE 135 mg/dL (74-118); POTASSIUM 4.2 mmol/L (3.5-5.1); SODIUM 138 mmol/L (136-145)
[2020-11-25 14:01] LABS: FREE THYROXINE INDEX 2.2424 (1.4-3.8); THYROID STIMULATING HORMONE 1.013 uIU/mL (0.350-4.940)
== END 2020-11-25 11:35 | disposition home or self-care (01) ==
LOC: ER 20:47 → ERHOLD 23:06 → MED/SURG 23:54
PROVIDERS: ADMIT Internal Medicine; ATTEND Internal Medicine
DX: T51.0X1A Toxic effect of ethanol, accidental (unintentional), initial encounter (principal); I95.89 Other hypotension; Y92.019 Unspecified place in single-family (private) house as the place of occurrence of the external cause; F10.220 Alcohol dependence with intoxication, uncomplicated; Y90.3 Blood alcohol level of 60-79 mg/100 ml; I25.10 Atherosclerotic heart disease of native coronary artery without angina pectoris; I10 Essential (primary) hypertension; Z95.5 Presence of coronary angioplasty implant and graft; G71.00 Muscular dystrophy, unspecified; K70.30 Alcoholic cirrhosis of liver without ascites; I48.0 Paroxysmal atrial fibrillation; I95.9 Hypotension, unspecified; Z20.822 Contact with and (suspected) exposure to COVID-19
CPT/HCPCS: 36415 ×2; 70450; 71045; 80048; 80053; 80061; 80320; 82550 ×2; 82553 ×2; 83880; 84436; 84443; 84479; 84484 ×2; 85025 ×2; 85610; 85730; 93005 ×2; 99285; G0378 ×2; J7030 ×2; U0002

== ENCOUNTER → 2020-12-07 | Day surgery (SDC) | payer MEDICARE ==
[2020-12-02 14:31] LABS: BASOPHILS # (AUTO) 0.1 (0.0-0.1); BASOPHILS % 0.6 % (0.0-1.0); EOSINOPHILS # (AUTO) 0.2 (0.0-0.4); EOSINOPHILS % 1.2 % (0.0-6.0); HEMOGLOBIN 14.5 g/dL (14.0-18.0); LYMPHOCYTES # (AUTO) 2.8 (1.0-3.2); LYMPHOCYTES % 22.2 % (18.0-39.1); MEAN CORPUSCULAR HEMOGLOBIN 31.4 pg (28-32); MEAN CORPUSCULAR VOLUME 95.2 fL (81-99); MONOCYTES # (AUTO) 0.8 (0.2-0.8); MONOCYTES % 6.5 % (4.4-11.3); NEUTROPHILS # (AUTO) 8.7 (2.1-6.9); NEUTROPHILS % 69.3 % (38.7-80.0); PLATELET COUNT 202 x10e3/uL (140-360); RED BLOOD COUNT 4.62 x10e6/uL (4.3-5.7); RED CELL DISTRIBUTION WIDTH 13.7 % (11.7-14.4)
[2020-12-02 15:00] LABS: ALANINE AMINOTRANSFERASE 40 IU/L (0-55); ALBUMIN 3.4 g/dL (3.5-5.0); ALBUMIN/GLOBULIN RATIO 1.2 (0.8-2.0); ALKALINE PHOSPHATASE 89 IU/L (40-150); ANION GAP 12.5 mmol/L (8-16); BLOOD UREA NITROGEN 12 mg/dL (7-26); BUN/CREATININE RATIO 17 (6-25); CALCIUM 9.1 mg/dL (8.4-10.2); CARBON DIOXIDE 22 mmol/L (22-29); CHLORIDE 104 mmol/L (98-107); CREATININE, SERUM 0.69 mg/dL (0.72-1.25); EST GLOMERULAR FILTRATION RATE > 60 ML/MIN (60-); GLUCOSE 128 mg/dL (74-118); POTASSIUM 4.5 mmol/L (3.5-5.1); SODIUM 134 mmol/L (136-145)
[~2020-12-07] VITALS: Ht 182.9 cm; Wt 81.6 kg
[2020-12-07] VITALS (11 sets, daily range): BP systolic 86–154; BP diastolic 70–77
[~2020-12-07] MED LIST changes: +ALPRAZOLAM 0.5 MG TAB ONE; +ASPIRIN 325 MG TAB ONE; +ATORVASTATIN CA20 MG PO; +BIVALRIUDIN 250 MG/VIAL VIAL IV ONE; +CLOPIDOGREL75 MG PO; +DIPHENHYDRAMINE HCL 25 MG CAP ONE; +DIPHENHYDRAMINE HCL INJ 50 MG/ML VIAL ONE; +FENTANYL CITRATE/PF 100MCG/2 ML INJ ONE; +HEPARIN SOD/SOD CHLORIDE 2,000 ML ONE; +IOPAMIDOL 370 MG/ML 200 ML INFUS..BTL INJ ONE; +LIDOCAINE HCL 2% LOCAL 20 ML VIAL ONE; +MEPERIDINE HCL INJ 25 MG/ML VIAL ONE; +METOCLOPRAMIDE H5 MG PO; +MIDAZOLAM HCL 2 MG/2 ML VIAL ONE; +PRASUGREL 10 MG TAB ONE; +SODIUM CHLORIDE 0.9% 1000ML 1,000 ML ONE; +SODIUM CHLORIDE 0.9% 50ML 50 ML ONE; +VERAPAMIL HCL 2.5 MG/ML 2 ML VIAL ONE
== END | disposition home or self-care (01) ==
LOC: CATH LAB 11:26
PROVIDERS: ATTEND Internal Medicine Interventional Cardiology
DX: I25.119 Atherosclerotic heart disease of native coronary artery with unspecified angina pectoris (principal); R94.39 Abnormal result of other cardiovascular function study; Z01.812 Encounter for preprocedural laboratory examination; Z20.822 Contact with and (suspected) exposure to COVID-19; Z79.02 Long term (current) use of antithrombotics/antiplatelets; Z79.82 Long term (current) use of aspirin
CPT/HCPCS: 36415; 76937; 80053; 85025; C1725; C1874; C9600; J0583; J2001; J2250; J3010; J7030; Q9967; U0002; 92928; 99152; 99153; J1200; J2175